=== PATIENT | female | born 2000 | race Hispanic/Latino ===

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

== ENCOUNTER 2020-02-12 19:45 | Emergency (ER) | payer OTHER ==
[~2020-02-12] VITALS: Ht 154.9 cm; Wt 65.0 kg
[2020-02-12] MEDS ORDERED: NAPROXEN500 MG PO (20:13)
[2020-02-12 20:25] VITALS: BP 126/75
== END 2020-02-12 20:25 | disposition home or self-care (01) | DRG 563 ==
LOC: ED 19:45
DX: S63.616A Unspecified sprain of right little finger, initial encounter (principal); S60.221A Contusion of right hand, initial encounter; W22.8XXA Striking against or struck by other objects, initial encounter; Y93.79 Activity, other specified sports and athletics

== ENCOUNTER 2023-05-13 07:00 | Emergency (ER) | payer SELFPAY ==
[~2023-05-13] VITALS: Ht 154.9 cm; Wt 68.0 kg
[~2023-05-13 07:00] MED LIST changes: +NAPROXEN500 MG PO
[2023-05-13 07:27] VITALS: BP 150/102
[2023-05-13 07:28] VITALS: BP 140/97
[2023-05-13 07:30] VITALS: BP 133/87
[2023-05-13 07:45] VITALS: BP 135/86
[2023-05-13] MEDS ORDERED: FLEXERIL5 M1 PO (07:57)
[2023-05-13] MEDS ORDERED: NAPROXEN500 MG PO (07:57)
[2023-05-13 08:00] VITALS: BP 125/89
[2023-05-13 08:09] VITALS: BP 125/89
== END 2023-05-13 08:18 | disposition home or self-care (01) | DRG 552 ==
LOC: ED 07:00
DX: M43.6 Torticollis (principal)